=== PATIENT | male | born 1990 | race American Indian/Alaskan Native ===

== ENCOUNTER 2019-10-12 14:26 | Emergency (ER) | payer SELFPAY ==
--- NOTE | 2019-10-12 14:48 | Emergency Department Report ---
Chief Complaint: Urogenital-Male Stated Complaint: PENIS DISCHARGE Time Seen by Provider: 10/12/19 14:47 - HPI History of Present Illness: Mr. Khanna is a 29-year-old male who presents with penile discharge. He is concerned for chlamydia and gonorrhea. I have performed medical screening exam. I performed provided outpatient resources for follow-up. He currently does not have a life or limb threatening condition. Denies abdominal pain or scrotal pain. - Exam Vital Signs: Vital Signs 10/12/19 14:32 Temperature 97.5 F L Pulse Rate 73 Respiratory 16 Rate Blood Pressure 144/94 O2 Sat by Pulse 98 Oximetry MSE screening note: Focused history and physical exam performed. Due to findings the following was ordered: ED Disposition for MSE Clinical Impression: Encounter for medical screening examination Disposition: - MED SCREENING EXAM-LEFT Is pt being admited?: No Does the pt Need Aspirin: No Condition: Stable Referrals: PANDA PAREDES MD [Staff Physician] - as needed
[2019-10-12 14:51] LABS: Bilirubin,Urine NEG (Negative); Blood,Urine NEG (Negative); Color,Urine Yellow (Yellow); Protein,Urine <15 mg/dL mg/dL (Negative); Urobilinogen,Urine < 2.0 mg/dL (<2.0)
[2019-10-12 15:08] VITALS: BP 144/94
== END 2019-10-12 14:59 | disposition left against medical advice (07) ==
LOC: ED 14:26
DX: R36.9 Urethral discharge, unspecified (principal)
CPT/HCPCS: 81001; 87086; 99282